=== PATIENT | female | born 1955 | race Caucasian/White ===

== ENCOUNTER → 2018-03-15 | Outpatient (CLI) | payer OTHER ==
[~2018-03-15] MED LIST: AMARYL4 MG PO; GLUCOPHAGE1000 MG PO; KEFLEX250 MG PO; LOTREL 5-20 MG1 EACH PO; ONGLYZA2.5 MG PO; WATER PILL
== END ==
LOC: M.ULTRA 02-11 09:07
DX: R10.30 Lower abdominal pain, unspecified (principal); R14.0 Abdominal distension (gaseous); R11.0 Nausea

== ENCOUNTER → 2018-09-02 | Outpatient (CLI) | payer OTHER | LOC: M.RAD 08:30 | DX: Z12.31 Encounter for screening mammogram for malignant neoplasm of breast (principal) ==

== ENCOUNTER → 2019-09-08 | Outpatient (CLI) | payer OTHER | LOC: M.RAD 08-23 15:11 | DX: Z12.31 Encounter for screening mammogram for malignant neoplasm of breast (principal); M85.88 Other specified disorders of bone density and structure, other site ==

== ENCOUNTER → 2020-12-21 | Outpatient (CLI) | payer OTHER | LOC: M.RAD 09:39 | DX: Z12.31 Encounter for screening mammogram for malignant neoplasm of breast (principal) ==